=== PATIENT | female | born 1945 | race African-American/Black ===

== ENCOUNTER 2024-10-28 17:12 | Emergency (ER) | payer MEDICARE, BC ==
[~2024-10-28] VITALS: Ht 170.2 cm; Wt 70.0 kg
[2024-10-28 17:15] VITALS: O2SAT 99
[2024-10-28] MEDS: LIDOCAINE HCL/EPINEPHRINE 1%-EPI 1:100,000 20ML VIAL INFIL ONE (18:00)
[2024-10-28] MEDS: BACITRACIN ZINC OINT UDPKT TOP ONE (18:00)
[2024-10-28] MEDS: ACETAMINOPHEN 325MG TABLET PO ONE (18:24)
[2024-10-28] MEDS: TETANUS, DIPHTHERIA, PERTUSSIS VAC/PF 0.5ML (>10YR OLD) IM ONE (18:28)
[2024-10-28 20:45] VITALS: BP 145/82; PULSE 78; RESP 18; TEMP 36.78072; O2SAT 99
== END 2024-10-28 20:48 | disposition home or self-care (01) ==
LOC: ER 17:12
DX: S01.111A Laceration without foreign body of right eyelid and periocular area, initial encounter (principal); S09.90XA Unspecified injury of head, initial encounter; I10 Essential (primary) hypertension; W22.09XA Striking against other stationary object, initial encounter; Y93.01 Activity, walking, marching and hiking; Y92.89 Other specified places as the place of occurrence of the external cause; Y99.8 Other external cause status
CPT/HCPCS: 70450; 72125; 90715; 12002; 90471; 99285; J2004; Z7610